=== PATIENT | male | born 1970 | race American Indian/Alaskan Native ===

== ENCOUNTER 2017-01-30 12:20 | Emergency (ER) | payer SELFPAY ==
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
[2017-01-30 21:45] VITALS: BP 139/88
== END 2017-01-30 21:45 | disposition home or self-care (01) ==
LOC: ED 12:20
DX: S16.1XXA Strain of muscle, fascia and tendon at neck level, initial encounter (principal); M79.1 Myalgia; M62.830 Muscle spasm of back; I10 Essential (primary) hypertension; V89.2XXA Person injured in unspecified motor-vehicle accident, traffic, initial encounter; Y93.9 Activity, unspecified; Y99.9 Unspecified external cause status; Y92.410 Unspecified street and highway as the place of occurrence of the external cause
CPT/HCPCS: 99282